=== PATIENT | male | born 1985 | race Caucasian/White ===

== ENCOUNTER 2016-10-11 17:58 | Observation (INO) | payer OTHER ==
[~2016-10-11] VITALS: Ht 170.2 cm; Wt 63.7 kg
[~2016-10-11 17:58] MED LIST: BUSPIRONE HCL10 MG PO; CITALOPRAM HBR40 MG PO; CLONAZEPAM0.5 MG PO; PROAIR HFA8.5 GM IH
[2016-10-11] MEDS ORDERED: ADVIL,NUPRIN,M200 MG PO (19:53)
[2016-10-11 23:26] VITALS: BP 122/67
[2016-10-12 04:20] VITALS: BP 142/71
[2016-10-12 07:25] VITALS: BP 141/75
[2016-10-12] MEDS ORDERED: PERCOCET 5/31 TABLET PO (11:12)
[2016-10-12] MEDS ORDERED: FLEXERIL10 MG PO (11:12)
== END 2016-10-12 11:30 | disposition home or self-care (01) ==
LOC: EME 17:58 → EDOF 20:50 → 3EAST 23:14 → 2EAST 23:14 → 3EAST 10-12 11:30
DX: S27.322D Contusion of lung, bilateral, subsequent encounter (principal); M79.602 Pain in left arm; S01.82XD Laceration with foreign body of other part of head, subsequent encounter; S01.02XD Laceration with foreign body of scalp, subsequent encounter; S01.111D Laceration without foreign body of right eyelid and periocular area, subsequent encounter; R07.9 Chest pain, unspecified; R04.2 Hemoptysis; F17.200 Nicotine dependence, unspecified, uncomplicated; Z91.19 Patient's noncompliance with other medical treatment and regimen; V49.9XXD Car occupant (driver) (passenger) injured in unspecified traffic accident, subsequent encounter
CPT/HCPCS: 71010; 93971; 99281; 99285; G0378; J1170; J2270; J2405; J7030